=== PATIENT | female | born 1965 | race Caucasian/White ===

== ENCOUNTER 2017-11-13 15:40 | Outpatient (REF) | payer MEDICARE, SELFPAY ==
[2017-11-13 23:12] LABS: Cholesterol 381 mg/dL (50-200); HDL Cholesterol 44 mg/dL (40-60); LDL CHOLESTEROL 263 mg/dL (<100); Triglyceride 488 mg/dL (30-150)
== END 2017-11-13 16:00 ==
LOC: NCHCN 15:40
PROVIDERS: PCP Nurse Practitioner Family; Visit Provider Registered Nurse
DX: E78.5 Hyperlipidemia, unspecified (principal)
CPT/HCPCS: 80061; 83721

== ENCOUNTER 2019-01-28 17:24 | Outpatient (REF) | payer MEDICARE, SELFPAY ==
--- NOTE | 2019-01-28 15:45 | PAPFT_PTH ---
PATIENT: Leslee Jamil LOC: [facility]#:[id number] AGE/SX: 53/F ROOM: RE01/28/[address]: Dorina Baxter : 1965 BED: DIS: 01/28/2019 SPEC #: [id number] RECD: 01/29/19 13:17 STATUS: REEMA REMirela #: [id number] CARMENCITA: 01/28/19 15:[address]: Dorina Baxter DEPT: [facility] Cytology RECD BY: Arleen Conley ENTERED: 01/29/19 13:18 SP TYPE: PAPFT OTHR DR: Danielle Myrick Tissues: 1 - CX/ENDOCX FOR PAP SMEARS Procedures: PAP THIN PREP/[facility] Screening HPV DNA PROBE Comments: [id number]
[2019-01-28 21:16] LABS: HCT 43.2 % (36.0-46.0); HGB 14.5 g/dL (12.0-15.5); Mean Corp. HGB Concentration 33.6 g/dL (32.0-36.0); Mean Corpuscular Hemoglobin 30.2 pg (27.0-33.0); Mean Platelet Volume 9.7 fL (8.0-11.0); Platelet Count 493 x1000/uL (130-400); RBC Distribution Width 12.1 % (11.7-14.6); White Blood Cell Count 9.35 k/cumm (4.4-10.8)
[2019-01-28 21:34] LABS: ALT 21 U/L (14-59); AST 12 U/L (15-37); Albumin 3.4 g/dL (3.4-5.0); Alkaline Phosphatase 113 U/L (46-116); Anion Gap 10.2 mmol/L (3-11); BUN 10 mg/dL (7-18); Bilirubin, Total 0.7 mg/dL (0.2-1.0); CO2 26.8 mmol/L (21.0-32.0); CREATININE 0.63 mg/dL (0.55-1.02); Calcium 9.3 mg/dL (8.5-10.1); Chloride 96 mmol/L (98-107); Glucose 274 mg/dL (74-106); Potassium 4.2 mmol/L (3.5-5.1); Sodium 133 mmol/L (136-145); Total Protein 7.4 g/dL (6.4-8.2)
== END 2019-01-28 17:44 ==
LOC: NCHCN 17:24
PROVIDERS: PCP Nurse Practitioner Family; Visit Provider Registered Nurse
DX: R10.30 Lower abdominal pain, unspecified (principal); Z12.4 Encounter for screening for malignant neoplasm of cervix
CPT/HCPCS: 80053; 85027; 88142; 87624

== ENCOUNTER 2019-02-03 13:25 | Outpatient (REF) | payer MEDICARE, SELFPAY ==
[2019-02-03 21:10] LABS: Hemoglobin A1C 10.2 % (4.5-6.2)
== END 2019-02-03 13:45 ==
LOC: NCHCN 13:25
PROVIDERS: PCP Nurse Practitioner Family; Visit Provider Registered Nurse
DX: R73.09 Other abnormal glucose (principal); E78.5 Hyperlipidemia, unspecified; E66.3 Overweight
CPT/HCPCS: 83036

== ENCOUNTER 2019-03-12 22:03 | Outpatient (REF) | payer MEDICARE, SELFPAY ==
[2019-03-12 21:29] LABS: Anion Gap 12.1 mmol/L (3-11); BUN 11 mg/dL (7-18); CO2 22.9 mmol/L (21.0-32.0); CREATININE 0.76 mg/dL (0.55-1.02); Calcium 9.2 mg/dL (8.5-10.1); Chloride 100 mmol/L (98-107); Glucose 260 mg/dL (74-106); Potassium 4.9 mmol/L (3.5-5.1); Sodium 135 mmol/L (136-145)
[2019-03-12 22:06] LABS: Vitamin B12 448 pg/mL (193-986)
== END 2019-03-12 22:23 ==
LOC: NCHCN 22:03
PROVIDERS: PCP Nurse Practitioner Family; Visit Provider Registered Nurse
DX: E53.8 Deficiency of other specified B group vitamins (principal); Z79.899 Other long term (current) drug therapy
CPT/HCPCS: 80048; 82607

== ENCOUNTER 2020-01-29 21:03 | Outpatient (REF) | payer MEDICARE, SELFPAY ==
[2020-01-29 21:50] LABS: Anion Gap 11.2 mmol/L (3-11); BUN 20 mg/dL (7-18); CO2 22.8 mmol/L (21.0-32.0); Calcium 8.9 mg/dL (8.5-10.1); Calculated LDL 116 mg/dL (<100); Chloride 99 mmol/L (98-107); Cholesterol 212 mg/dL (<200); Glucose 359 mg/dL (74-106); HDL Cholesterol 57 mg/dL (40-60); Potassium 4.1 mmol/L (3.5-5.1); Sodium 133 mmol/L (136-145); Triglyceride 195 mg/dL (<150)
[2020-01-29 21:57] LABS: Hemoglobin A1C 10.5 % (<5.7)
== END 2020-01-29 21:23 ==
LOC: NCHCN 21:03
PROVIDERS: PCP Nurse Practitioner Family; Visit Provider Registered Nurse
DX: E11.9 Type 2 diabetes mellitus without complications (principal); E78.5 Hyperlipidemia, unspecified; E66.9 Obesity, unspecified
CPT/HCPCS: 80048; 80061; 83036

== ENCOUNTER 2020-02-24 20:21 | Outpatient (REF) | payer MEDICARE, SELFPAY ==
[2020-02-24 22:39] LABS: COMMENT (LAB VIEW ONLY) 71.51 mg/dL; Microalb ug/mg Crea 8.7 ug/mg Cr
== END 2020-02-24 20:41 ==
LOC: NCHCN 20:21
PROVIDERS: PCP Nurse Practitioner Family; Visit Provider Registered Nurse
DX: E11.9 Type 2 diabetes mellitus without complications (principal)
CPT/HCPCS: 82043; 82570

== ENCOUNTER 2020-11-03 20:13 | Outpatient (REF) | payer MEDICARE, SELFPAY ==
[2020-11-03 21:04] LABS: Anion Gap 13.1 mmol/L (3-11); BUN 21 mg/dL (7-18); CO2 20.9 mmol/L (21.0-32.0); CREATININE 0.7 mg/dL (0.55-1.02); Calcium 8.9 mg/dL (8.5-10.1); Chloride 104 mmol/L (98-107); Glucose 202 mg/dL (74-106); Potassium 4.5 mmol/L (3.5-5.1); Sodium 138 mmol/L (136-145)
== END 2020-11-03 20:14 | disposition home or self-care (01) ==
LOC: NCHCN 20:13
PROVIDERS: PCP Nurse Practitioner Family; Visit Provider Registered Nurse
DX: E87.1 Hypo-osmolality and hyponatremia (principal)
CPT/HCPCS: 80048

== ENCOUNTER 2021-05-11 20:17 | Outpatient (REF) | payer MEDICARE, SELFPAY ==
[2021-05-11 21:56] LABS: Hemoglobin A1C 8.1 % (<5.7)
[2021-05-11 22:21] LABS: Calculated LDL 115 mg/dL (<100); Cholesterol 207 mg/dL (<200); HDL Cholesterol 77 mg/dL (40-60); Triglyceride 78 mg/dL (<150); Vitamin B12 394 pg/mL (193-986)
== END 2021-05-11 20:18 | disposition home or self-care (01) ==
LOC: NCHCN 20:17
PROVIDERS: PCP Nurse Practitioner Family; Visit Provider Registered Nurse
DX: E11.9 Type 2 diabetes mellitus without complications (principal)
CPT/HCPCS: 80061; 82607; 83036

== ENCOUNTER 2021-08-09 18:43 | Outpatient (REF) | payer OTHER, SELFPAY ==
[2021-08-09 21:55] LABS: COMMENT (LAB VIEW ONLY) 70.13 mg/dL; Microalb ug/mg Crea 9.6 ug/mg Cr
== END 2021-08-09 18:44 | disposition home or self-care (01) ==
LOC: NCHCN 18:43
PROVIDERS: PCP Nurse Practitioner Family; Visit Provider Registered Nurse
DX: E11.9 Type 2 diabetes mellitus without complications (principal)
CPT/HCPCS: 82043; 82570

== ENCOUNTER 2021-12-20 21:53 | Outpatient (REF) | payer OTHER, SELFPAY ==
[2021-12-20 22:28] LABS: Anion Gap 11.2 mmol/L (3-11); BUN 21 mg/dL (7-18); CO2 19.8 mmol/L (21.0-32.0); CREATININE 0.8 mg/dL (0.55-1.02); Calcium 9.3 mg/dL (8.5-10.1); Chloride 104 mmol/L (98-107); Estimated GFR 85.89 (mL/min/1.73m2); Glucose 192 mg/dL (74-106); Potassium 4.6 mmol/L (3.5-5.1); Sodium 135 mmol/L (136-145)
[2021-12-20 22:35] LABS: Hemoglobin A1C 7.2 % (<5.7)
== END 2021-12-20 21:54 | disposition home or self-care (01) ==
LOC: NCHCN 21:53
PROVIDERS: PCP Nurse Practitioner Family; Visit Provider Registered Nurse
DX: E11.9 Type 2 diabetes mellitus without complications (principal); R03.0 Elevated blood-pressure reading, without diagnosis of hypertension; E66.8 Other obesity
CPT/HCPCS: 80048; 83036

== ENCOUNTER 2022-06-06 18:00 | Outpatient (REF) | payer MEDICARE, SELFPAY ==
[2022-06-06 22:06] LABS: COMMENT (LAB VIEW ONLY) 57.34 mg/dL
== END 2022-06-06 18:01 | disposition home or self-care (01) ==
LOC: NCHCN 18:00
PROVIDERS: PCP Nurse Practitioner Family; Visit Provider Registered Nurse
DX: E11.9 Type 2 diabetes mellitus without complications (principal)
CPT/HCPCS: 82043; 82570

== ENCOUNTER 2023-09-02 13:49 | Outpatient (REF) | payer MEDICARE, SELFPAY ==
[2023-09-02 15:56] LABS: Anion Gap 10.7 mmol/L (3-11); BUN 21 mg/dL (7-18); CO2 22.3 mmol/L (21.0-32.0); CREATININE 0.8 mg/dL (0.55-1.02); Calcium 9.3 mg/dL (8.5-10.1); Chloride 103 mmol/L (98-107); Estimated GFR 85.35 (mL/min/1.73m2); Ferritin 223 ng/mL (8-252); Glucose 250 mg/dL (74-106); Magnesium 2.2 mg/dL (1.8-2.4); Potassium 4.1 mmol/L (3.5-5.1); Sodium 136 mmol/L (136-145)
[2023-09-02 16:02] LABS: Iron 74 ug/dL (50-170); Total Iron Binding Capacity 390 ug/dL (250-450); Transferrin Sat 19 % (15-50)
[2023-09-02 16:35] LABS: COMMENT (LAB VIEW ONLY) 46.58 mg/dL; Microalb ug/mg Crea 4.3 ug/mg Cr
== END 2023-09-02 13:50 | disposition home or self-care (01) ==
LOC: NCHCN 13:49
PROVIDERS: PCP Nurse Practitioner Family; Visit Provider Family Medicine
DX: E11.9 Type 2 diabetes mellitus without complications (principal); G25.81 Restless legs syndrome; R51.9 Headache, unspecified
CPT/HCPCS: 80048; 82043; 82570; 82728; 83540; 83550; 83735

== ENCOUNTER 2024-08-24 18:55 | Outpatient (REF) | payer MEDICARE, SELFPAY ==
[2024-08-24 21:57] LABS: ALT 33 U/L (14-59); AST 25 U/L (15-37); Alkaline Phosphatase 91 U/L (46-116); Anion Gap 9.1 mmol/L (3-11); BUN 14 mg/dL (7-18); Bilirubin, Total 1.6 mg/dL (0.2-1.0); CO2 25.9 mmol/L (21.0-32.0); CREATININE 0.8 mg/dL (0.55-1.02); Calcium 9.8 mg/dL (8.5-10.1); Calculated LDL 100 mg/dL (<100); Chloride 102 mmol/L (98-107); Cholesterol 210 mg/dL (<200); Estimated GFR 84.82 (mL/min/1.73m2); Glucose 197 mg/dL (74-106); HDL Cholesterol 76 mg/dL (>or=50); Potassium 4.5 mmol/L (3.5-5.1); Sodium 137 mmol/L (136-145); Total Protein 7.3 g/dL (6.4-8.2); Triglyceride 172 mg/dL (<150)
== END 2024-08-24 18:56 | disposition home or self-care (01) ==
LOC: NCHCN 18:55
PROVIDERS: Visit Provider Family Medicine
DX: E11.9 Type 2 diabetes mellitus without complications (principal); Z13.220 Encounter for screening for lipoid disorders
CPT/HCPCS: 80053; 80061

== ENCOUNTER 2024-12-24 17:45 | Outpatient (REF) | payer MEDICARE, SELFPAY ==
[2024-12-24 21:00] LABS: Iron 113 ug/dL (50-170); Total Iron Binding Capacity 326 ug/dL (250-450); Transferrin Sat 35 % (15-50)
[2024-12-24 21:21] LABS: ALT 27 U/L (14-59); AST 17 U/L (15-37); Albumin 3.7 g/dL (3.4-5.0); Alkaline Phosphatase 93 U/L (46-116); Anion Gap 11.2 mmol/L (3-11); BUN 19 mg/dL (7-18); Bilirubin, Total 1.3 mg/dL (0.2-1.0); CO2 23.8 mmol/L (21.0-32.0); Calcium 9.3 mg/dL (8.5-10.1); Chloride 105 mmol/L (98-107); Estimated GFR 84.30 (mL/min/1.73m2); Ferritin 284 ng/mL (8-252); Folate 16.0 ng/mL (8.6-20.0); Glucose 215 mg/dL (74-106); Magnesium 2.1 mg/dL (1.8-2.4); Potassium 3.9 mmol/L (3.5-5.1); Sodium 140 mmol/L (136-145); Total Protein 7.3 g/dL (6.4-8.2); Vitamin B12 424 pg/mL (193-986)
[2024-12-25 21:46] LABS: Hepatitis C Ab w Rflx HCV PCR Negative (Negative)
== END 2024-12-24 17:46 | disposition home or self-care (01) ==
LOC: NCHCN 17:45
PROVIDERS: Visit Provider Family Medicine
DX: Z86.2 Personal history of diseases of the blood and blood-forming organs and certain disorders involving the immune mechanism (principal); E78.5 Hyperlipidemia, unspecified; G25.81 Restless legs syndrome; Z11.59 Encounter for screening for other viral diseases
CPT/HCPCS: 80053; 86803; 82607; 82728; 82746; 83540; 83550; 83735